=== PATIENT | female | born 1980 | race Two or more races ===

== ENCOUNTER 2016-11-30 16:21 | Emergency (ER) | payer MEDICAID ==
[~2016-11-30] VITALS: Ht 154.9 cm; Wt 63.5 kg
[2016-11-30] MEDS: ONDANSETRON ODT 4 MG TAB PO ONE ×2 (16:41)
[2016-11-30 17:33] LABS: Albumin 4.3 g/dL (3.4-5.0); BUN/Creatinine Ratio 27.8; Bilirubin, Total 0.3 mg/dL (0.2-1.0); Potassium 3.5 mmol/L (3.5-5.1)
[2016-11-30 17:40] LABS: Basophils # (auto) 0.2 uL; Basophils % (auto) 2.4 % (0.0-2.0); DEFINITIVE VIEW TRANSMISSION; Eosinophils # (auto) 0.1 uL; Eosinophils % (auto) 0.9 % (0.0-7.0); Hemoglobin 10.8 g/dL (12.2-16.2); Lymphocytes # (auto) 2.1 uL; Lymphocytes % (auto) 26.6 % (10.0-50.0); Mean Corpuscular Hemoglobin 24.1 pg (28.0-32.0); Mean Corpuscular Hgb Conc. 30.7 g/dL (32.0-36.0); Mean Corpuscular Volume 78.6 fL (80.0-100.0); Mean Platelet Volume 10.6 fL (7.4-10.4); Monocytes # (auto) 0.5 uL; Monocytes % (auto) 6.6 % (0.0-12.0); Neutrophils # (auto) 5.1 uL; Neutrophils % (auto) 63.5 % (37.0-80.0); Platelet Count (auto) 343 10^3/uL (140-450); Red Cell Distribution Width 17.5 % (11.6-16.0)
[2016-11-30] MEDS: HYDROmorphone HCL 2 MG/ML VL IV ONE (21:26)
[2016-11-30] MEDS: ONDANSETRON HCL 4 MG/2 ML VIAL IV ONE (21:26)
[2016-11-30] MEDS: SODIUM CHLORIDE 0.9% 1,000 ML IVB ONE (21:26)
[2016-12-01 00:21] VITALS: BP 134/94
[2016-12-01 03:46] LABS: Urine RBC None Seen /hpf (0 - 4)
[2016-12-01 04:08] LABS: Urine Bilirubin Negative (Negative); Urine Blood Negative /uL (Negative); Urine Color Colorless (Yellow); Urine Glucose Normal (Normal); Urine Ketone Negative (Negative); Urine Nitrite Negative (Negative); Urine Squamous Epithelial Cell FEW /hpf (<5); Urine Urobilinogen Normal (Negative)
== END 2016-12-01 02:32 | disposition home or self-care (01) ==
LOC: ER 16:34
DX: R10.9 Unspecified abdominal pain (principal); Z98.51 Tubal ligation status; Z90.49 Acquired absence of other specified parts of digestive tract
CPT/HCPCS: 36415; 76856; 80053; 81001; 83690; 84702; 85025; 94761; 96361; 96374; 96375; 99285; J1170; J2405; Q0162